=== PATIENT | male | born 1970 | race Caucasian/White ===

== ENCOUNTER 2018-03-21 03:30 | Emergency (ER) | payer MEDICAID, OTHER ==
[~2018-03-21] VITALS: Ht 175.3 cm; Wt 88.5 kg
[2018-03-21 03:54] VITALS: BP 160/102
== END 2018-03-21 08:01 | disposition left against medical advice (07) ==
LOC: ER 03:30
DX: R11.2 Nausea with vomiting, unspecified (principal); G89.29 Other chronic pain; M54.9 Dorsalgia, unspecified; Z53.21 Procedure and treatment not carried out due to patient leaving prior to being seen by health care provider

== ENCOUNTER 2018-04-24 07:50 | Emergency (ER) | payer OTHER ==
[~2018-04-24] VITALS: Ht 175.3 cm; Wt 93.0 kg
[2018-04-24] MEDS ORDERED: cloNIDine HCL 0.1 MG TAB PO ONE (08:45)
[2018-04-24] MEDS ORDERED: PROMETHAZINE HCL 25 MG/ML 1ML IM ONE (09:30)
[2018-04-24] MEDS ORDERED: MEPERIDINE HCL (50 MG/ML) 1 ML VIAL IM ONE (09:30)
[2018-04-24] MEDS ORDERED: FUROSEMIDE 20 MG TAB PO ONE (10:30)
[2018-04-24] MEDS ORDERED: HCTZ 25 MG TAB PO ONE (10:30)
[2018-04-24] MEDS ORDERED: METOPROLOL TARTRATE 50 MG TAB PO ONE (10:30)
[2018-04-24 11:53] VITALS: BP 163/108
== END 2018-04-24 12:00 | disposition home or self-care (01) ==
LOC: ER 07:50
DX: G89.29 Other chronic pain (principal); M54.5 Low back pain; J45.909 Unspecified asthma, uncomplicated; I50.9 Heart failure, unspecified; J44.9 Chronic obstructive pulmonary disease, unspecified; E11.9 Type 2 diabetes mellitus without complications; I11.0 Hypertensive heart disease with heart failure; E07.9 Disorder of thyroid, unspecified; Z95.0 Presence of cardiac pacemaker; Z88.0 Allergy status to penicillin
CPT/HCPCS: 72100; 96372; 99284; J2175; J2550